=== PATIENT | female | born 1975 | race Caucasian/White ===

== ENCOUNTER 2018-02-10 14:13 | Emergency (ER) | payer BC, SELFPAY ==
[2018-02-10 14:14] VITALS: BP 148/91; PULSE 77; RESP 18; TEMP 37.8; O2SAT 99; BMI 28.3
--- NOTE | 2018-02-10 15:31 | CT_ITS ---
STUDY: CT ABDOMEN AND PELVIS WITHOUT CONTRAST REASON FOR EXAM: Female, 42 years old. Abdominal pain, nausea and bright red rectal bleeding. RADIATION DOSAGE (If Supplied By Facility): CTDIvol = ( 7.17 ) mGy, DLP = ( 333.29 ) mGycm TECHNIQUE: Transaxial images were obtained from the dome of the diaphragm to the symphysis pubis without oral contrast, and without intravenous contrast. Sagittal and coronal images were reconstructed. Individualized dose optimization techniques were used for this CT. COMPARISON: None. FINDINGS: The visualized lung bases are unremarkable. The visualized portions of the heart are within normal limits. Normal liver. Normal gallbladder and extrahepatic biliary system. Normal spleen. Normal pancreas. Normal bilateral adrenal glands. Focal cortical scar in the posterior lower pole of the right kidney. Otherwise normal right kidney without hydronephrosis, renal or ureteral stones. Normal left kidney without hydronephrosis, renal or ureteral stones. Normal visualized stomach. Normal small intestine. Minimal diverticulosis of the distal descending colon without evidence of acute diverticulitis. The distal rectosigmoid colon is thickened and featureless with no air in the lumen. There is stranding in the surrounding fatty tissues. Normal abdominal aorta. Normal inferior vena cava. Normal retroperitoneum. Normal urinary bladder. The uterus is anteverted and tilted to the right side. There is a slightly lumpy fundus, most likely fibroid changes. There is a 4.2 x 4.7 x 4.5 cm left ovarian cyst. 1.3 cm cyst or dominant follicle of the right ovary. Negative for free fluid. Normal abdominal wall. Normal osseous structures. CT/Abdomen/Pelvis without Cont IMPRESSION: Generalized thickening of an otherwise featureless distal rectosigmoid colon with stranding in the surrounding fatty tissues. Findings are consistent with a distal colitis/proctitis without evidence of focal perforation or abscess formation. As the lumen is completely airless, a mass density is not totally excludable but is not suggested. Probable fibroid change of the uterine fundus. 4.2 x 4.7 x 4.5 cm left ovarian cyst. 1.3 cm cyst or dominant follicle of the right ovary. Negative for free fluid. Minimal diverticulosis of primarily the descending colon without evidence of acute diverticulitis. A normal appendix is identified. Electronically Signed: Enriqueta Pulido MD at 17:30 EDT , Service support ,
--- NOTE | 2018-02-10 15:32 | ED.VISSUMM ---
- ER Visit Summary Date of Service: 02/10/18 Chief Complaint: [Abdominal pain, rectal bleeding] History of Present Illness: The patient is a 42 F [[place] with abdominal pain that started this morning. She has had a constant feeling like she has to go to the bathroom but when she goes it is just small amount of bright red blood that collects in the bottom of the toilet. She has had about 5 episodes like this. She feels very fatigued. She has had slowly worsening abdominal pain. She did do an enema early afternoon thinking she may be constipated and it made the pain much worse. She has had nausea and chills. No vomiting. The pain does radiate to the back and is in the bilateral lower quadrant. She has had an oophorectomy. She has obstructive sleep apnea and occasional heartburn. She does not use NSAIDs. She rarely drinks alcohol. She denies smoking.] Physical Examination: [] Temperature 100.1 WN WD NAD PERRL EOMI MMM NECK supple and nontender, no masses RRR no murmur rub or gallop, no peripheral edema, symmetric radial pulses CTAB no respiratory distress ABDOMEN is soft tenderness in the bilateral lower quadrants, normal bowel sounds, no distension, no rebound or guarding Mild tenderness to percussion of the lower back The exam reveals no hemorrhoids the rectal vault is empty there is no gross blood SKIN is warm and dry no rashes Alert and Oriented x3, CN II-XII in tact, no motor or sensory deficits, gait normal No lymphadenopathy Test Results: [] Emergency Department Course and Treatment: [V was established she was given fluids morphine and Zofran. She was improved. Patient had a mild leukocytosis at 11.9. BMP was unremarkable. CT showed inflammation with associated stranding around the distal colon sigmoid and rectum. She had fibroids in her uterus. Patient is tolerating p.o. is comfortable I think this likely could represent an infectious hemorrhagic colitis. She was given Cipro and Flagyl. She was given Citra Cipro Flagyl [place] and Zofran for home. She was given careful precautions for which to return and will follow up with primary care physician at the [facility]. I did explain to her that if she is not doing better and could not get close follow-up and she should return to the emergency department.] Treatment Plan: [] Disposition: [Discharge] Impression: [hemorrhagic colitis] This note was generated with [employer] dictation software. It may contain incorrect words, spelling, and punctuation that were not noted in review of the chart prior to signing ED Disposition - Plan for ED Patient: Chief Complaint: GI Bleed Referrals: Jose Dewitt DO [Primary Care Provider] -
--- NOTE | 2018-02-10 15:35 | ED.DCSUM_ITS ---
- ER Visit Summary Date of Service: 02/10/18 Chief Complaint: [Abdominal pain, rectal bleeding] History of Present Illness: The patient is a 42 F [[place] emergency department with abdominal pain that started this morning. She has had a constant feeling like she has to go to the bathroom but when she goes it is just small amount of bright red blood that collects in the bottom of the toilet. She has had about 5 episodes like this. She feels very fatigued. She has had slowly worsening abdominal pain. She did do an enema early afternoon thinking she may be constipated and it made the pain much worse. She has had nausea and chills. No vomiting. The pain does radiate to the back and is in the bilateral lower quadrant. She has had an oophorectomy. She has obstructive sleep apnea and occasional heartburn. She does not use NSAIDs. She rarely drinks alcohol. She denies smoking.] Physical Examination: [] Temperature 100.1 WN WD NAD PERRL EOMI MMM NECK supple and nontender, no masses RRR no murmur rub or gallop, no peripheral edema, symmetric radial pulses CTAB no respiratory distress ABDOMEN is soft tenderness in the bilateral lower quadrants, normal bowel sounds , no distension, no rebound or guarding Mild tenderness to percussion of the lower back The exam reveals no hemorrhoids the rectal vault is empty there is no gross blood SKIN is warm and dry no rashes Alert and Oriented x3, CN II-XII in tact, no motor or sensory deficits, gait normal No lymphadenopathy Test Results: [] Emergency Department Course and Treatment: [V was established she was given fluids morphine and Zofran. She was improved. Patient had a mild leukocytosis at 11.9. BMP was unremarkable. CT showed inflammation with associated stranding around the distal colon sigmoid and rectum. She had fibroids in her uterus. Patient is tolerating p.o. is comfortable I think this likely could represent an infectious hemorrhagic colitis. She was given Cipro and Flagyl. She was given Citra Cipro Flagyl [place] and Zofran for home. She was given careful precautions for which to return and will follow up with primary care physician at the [facility] [place]. I did explain to her that if she is not doing better and could not get close follow-up and she should return to the emergency department.] Treatment Plan: [] Disposition: [Discharge] Impression: [hemorrhagic colitis] This note was generated with [employer] dictation software. It may contain incorrect words, spelling, and punctuation that were not noted in review of the chart prior to signing ED Disposition - Plan for ED Patient: Chief Complaint: GI Bleed Referrals: Jose Dewitt DO [Primary Care Provider] -
[2018-02-10] MEDS: Morphine 4 MG/ML Syringe IV (16:15)
[2018-02-10] MEDS: Ondansetron 4 MG/2 ML Vial IV (16:15)
[2018-02-10] MEDS: 0.9% Normal Saline 1,000 ML 1000 ML IV (16:16)
[2018-02-10 16:18] LABS: Basophil# 0.02 X10^3/uL; Basophil% 0.2 % (0-1); Eosinophil# 0.06 X10^3/uL; Eosinophils% 0.5 % (0-5); Hematocrit 41.9 % (37-47); Hemoglobin 13.6 g/dl (12.0-15.0); Lymphocyte % 10.1 % (19-41); Mean Corp Hgb Conc 32.5 g/gl (32-36); Mean Corpuscular Volume 83.1 fL (81-99); Monocyte# 0.61 X10^3/uL; Monocyte% 5.1 % (0-10); Neutrophil # 10.02 X10^3/uL (2.7-7.7); Platelet Count 138 K/mm3 (150-450); RBC Distribution Width CV 13.2 % (11.6-14.6); RBC Distribution Width SD 39.5 fl (35.1-43.9); Red Blood Count 5.04 M/mm3 (4.2-5.4); White Blood Count 11.9 K/mm3 (4.4-11.0)
[2018-02-10 16:19] LABS: POSITIVE COUNT NO; POSITIVE DIFFERENTIAL NO; POSITIVE MORPHOLOGY NO
[2018-02-10 16:36] LABS: ALB/GLOB Ratio 1.1 RATIO (0.9-2.4); AST(SGOT) 11 U/L (15-37); Alanine Aminotransfer ALT/SGPT 21 U/L (13-56); Albumin, Serum 4.2 g/dL (3.2-5.0); Alkaline Phosphatase 54 U/L (45-117); Anion Gap 8 (5-15); BUN 8 mg/dL (7-18); BUN/Creat Ratio 10.3 RATIO (10-20); Calcium,Total 8.5 mg/dL (8.5-10.1); Chloride 104 mmol/L (98-107); Creatinine, Serum 0.78 mg/dL (0.55-1.02); EST Glomerular Filtration Rate 87 mL/min (>60); Est Glom Filt Rate - Afr Amer 105 mL/min (>60); Estimated Creatinine Clearance 79.31 ml/min; Globulin 3.8 g/dL (2.2-4.2); Glucose 89 mg/dL (74-106); Lipase 144 U/L (73-393); Potassium 3.8 mmol/L (3.5-5.1); Sodium Level 137 mmol/L (136-145)
[2018-02-10 16:42] LABS: Pregnancy, Serum, hCG Quali. NEGATIVE Negative (0-9 Nonpreg)
[2018-02-10 16:54] LABS: Bacteria 0 SEEN /hpf (None Seen); Mucous, Urine 0 SEEN /hpf (<or=2+); Red Blood Cells-Urine 0 SEEN /hpf (0-5); Squamous Epithelial Cells - UA 0 SEEN /hpf (5-10); White Blood Cells 0 SEEN /hpf (0-5)
[2018-02-10 17:00] VITALS: RESP 18
[2018-02-10 17:04] LABS: Color, Urine Yellow (Yellow); Glucose, Dipstick Normal (Normal); Ketone-Dipstick 50 mg/dl (Negative); Leukocyte Esterase-Dipstick Negative /ul (Negative); Nitrite-Dipstick Negative (Negative); Occult Blood-Urine Negative /ul (Negative); Protein-Dipstick Negative (Negative); Urine Bilirubin Dipstick Negative (Negative); Urine Clarity Clear (Clear); Urine Urobilinogen Normal (Normal)
--- NOTE | 2018-02-10 18:10 | ED.DEP ---
ED Disposition - Plan for ED Patient: Disposition: Home or Assisted Living Chief Complaint: GI Bleed Instructions: ED Gastroenteritis Bacterial Prescriptions: Hydrocodone Bitart/Apap 5-325 [[place] 5MG-325MG] 1 tablet PO Q6H PRN PRN 3 Days #10 tablet PRN Reason: Pain Ondansetron [Zofran Odt] 4 mg PO Q8H PRN PRN #14 tablet PRN Reason: Nausea Metronidazole [Flagyl] 500 mg PO Q8H #21 tablet Ciprofloxacin [Cipro] 500 mg PO BID #14 tablet Referrals: Paxton Conteh DO [NON CLINICAL AFFILIATE] - 3-5 Days
--- NOTE | 2018-02-10 18:15 | DCINST.ED_ITS ---
ED Disposition - Plan for ED Patient: Disposition: Home or Assisted Living Chief Complaint: GI Bleed Instructions: ED Gastroenteritis Bacterial Prescriptions: Hydrocodone Bitart/Apap 5-325 [[place] 5MG-325MG] 1 tablet PO Q6H PRN PRN 3 Days # 10 tablet PRN Reason: Pain Ondansetron [Zofran Odt] 4 mg PO Q8H PRN PRN #14 tablet PRN Reason: Nausea Metronidazole [Flagyl] 500 mg PO Q8H #21 tablet Ciprofloxacin [Cipro] 500 mg PO BID #14 tablet Referrals: Paxton Conteh DO [NON CLINICAL AFFILIATE] - 3-5 Days
[2018-02-10] MEDS: Ciprofloxacin 500 MG Tablet PO (18:26)
[2018-02-10] MEDS: metroNIDAZOLE 500 MG Tablet PO (18:26)
[2018-02-10 18:32] VITALS: BP 117/58; PULSE 71; RESP 17; O2SAT 98
== END 2018-02-10 18:33 | disposition home or self-care (01) ==
PROVIDERS: Emergency Provider Emergency Medicine; Family Provider Family Medicine; PCP Family Medicine
DX: K52.9 Noninfective gastroenteritis and colitis, unspecified (principal)
CPT/HCPCS: 74176; 80053; 81001; 82274; 83605; 83690; 84703; 85025; 96361; 96374; 96375; 99285; J7030; A4216; J2405

== ENCOUNTER 2018-02-14 02:15 | Emergency (ER) | payer BC, SELFPAY ==
[2018-02-14 02:17] VITALS: BP 160/81; PULSE 81; RESP 20; TEMP 36.7; O2SAT 99; BMI 29.4
--- NOTE | 2018-02-14 02:50 | RAD_ITS ---
STUDY: X-RAY - ABDOMEN/PELVIS REASON FOR EXAM: Female, 42 years old. Pain TECHNIQUE: Single AP view of the abdomen / pelvis. COMPARISON: None. FINDINGS: Constipation pattern is present. Nonobstructive bowel gas pattern. Pelvic phleboliths. There is no demonstrated free abdominal air. The visualized liver, spleen and kidneys are grossly normal in size and morphology. Normal soft tissue structures. Normal visualized osseous structures. RAD/Abdomen Single View IMPRESSION: Constipation pattern is present. Nonobstructive bowel gas pattern. Electronically Signed: Chilo Adame MD at 4:21 EDT Tel , Service support ,
--- NOTE | 2018-02-14 03:19 | ED.DCSUM_ITS ---
- ER Visit Summary Date of Service: 02/14/18 Chief Complaint: Abdominal pain and constipation History of Present Illness: The patient is a 42 F history of sleep apnea. Only prior abdominal surgery was for resection of one ovary. She states that she was seen in the ER about 3 days ago. He did a full workup including a CAT scan. Basically treated her for colitis with Flagyl and Cipro. She states that she has not a bowel movement now for 2 weeks. Denies diarrhea. She has had some rectal bleeding which they knew about on the last evaluation. That has not gotten any worse. She denies any fever. She denies any dysuria. Physical Examination: Well-appearing middle-age female. Vital signs stable afebrile. She does not look septic or toxic. She is no acute distress. H EENT exam unremarkable. Moist mucous membranes. Neck nontender no lymphadenopathy. Lungs clear to auscultation bilaterally. Heart regular rate and rhythm no murmur. Abdomen is soft, nontender nondistended normal bowel sounds no peritoneal signs. She has no localizing tenderness. There is no rebound, guarding or rigidity. Both the right upper right lower quadrant unremarkable. There is no hernias or masses. There is no signs of obstruction. She is moving all 4 extremities are neurovascular intact. Neurologically she is awake and alert without focal motor deficits. Test Results: I reviewed the patient's workup from several days ago in the ER. At that time her CBC, chemistry and other labs are basically unremarkable. She also had a CT done at that time. Emergency Department Course and Treatment: A KUB was done tonight showed increased stool in the descending colon some in the rectum. There is no signs of obstruction. There was increased bowel gas on the right. Treatment Plan: Patient will be treated with magnesium citrate. And instructed to follow-up for an outpatient colonoscopy for her rectal bleeding. Disposition: Discharge Impression: Abdominal pain secondary to constipation Rectal bleeding of uncertain etiology This note was generated with [employer] dictation software. It may contain incorrect words, spelling, and punctuation that were not noted in review of the chart prior to signing ED Disposition - Plan for ED Patient: Chief Complaint: Abd Pain Referrals: Care Physician,No Primary [Primary Care Provider] -
--- NOTE | 2018-02-14 03:19 | ED.DEP ---
ED Disposition - Plan for ED Patient: Disposition: Home or Assisted Living Chief Complaint: Abd Pain Instructions: ED Constipation Referrals: Jasmeet Akhtar MD [STAFF PHYSICIAN] - As soon as possible Additional Instructions: Drink the entire bottles of magnesium citrate to help have a bowel movement. Call follow-up with Dr. Jasmeet Akhtar or general surgeon of her choice as soon as possible for an outpatient colonoscopy. This will need to be done to evaluate you for your rectal bleeding. Do not have a source or cause for that at this time.
[2018-02-14] MEDS: Magnesium Citrate 300 ML PO (03:26)
[2018-02-14 03:27] VITALS: BP 148/71; PULSE 78; RESP 22; O2SAT 96
== END 2018-02-14 03:27 | disposition home or self-care (01) ==
PROVIDERS: Emergency Provider Emergency Medicine
DX: K59.00 Constipation, unspecified (principal); K62.5 Hemorrhage of anus and rectum
CPT/HCPCS: 74018; 99283; A4216

== ENCOUNTER → 2019-12-01 10:48 | Outpatient (CLI) | payer BC, SELFPAY ==
[2019-12-01 15:08] LABS: Absolute Lymphocyte Count 1.16 X10^3/uL (0.83-4.51); Absolute Neutrophil Count 3.9 X10^3/uL (2.0-7.7); Basophil# 0.04 X10^3/uL; Basophil% 0.7 % (0-1); Eosinophil# 0.11 X10^3/uL; Hematocrit 45.2 % (37-47); Hemoglobin 13.9 g/dL (12.0-15.0); Lymphocyte # 1.16 X10^3/ul (4.0); Mean Corp Hgb Conc 30.8 g/dL (32-36); Mean Corpuscular Hgb 27.1 pg (27.0-32.0); Mean Corpuscular Volume 88.1 fL (81-99); Mean Platelet Vol. 11.6 fl (6.2-12.0); Monocyte# 0.34 X10^3/uL; Monocyte% 6.1 % (0-10); NRBC Flagged by Analyzer 0 % (0-5); Neutrophil # 3.86 X10^3/uL (2.7-7.7); Neutrophil % 69.8 % (47-70); Platelet Count 199 K/mm3 (150-450); RBC Distribution Width CV 13.4 % (11.6-14.6); RBC Distribution Width SD 43.4 fl (35.1-43.9); Red Blood Count 5.13 M/mm3 (4.2-5.4); White Blood Count 5.5 K/mm3 (4.4-11.0)
[2019-12-01 15:21] LABS: Vitamin D,25 Hydroxy 93.2 ng/mL
[2019-12-01 15:23] LABS: Vitamin B12 > 2000 pg/mL (211-911)
[2019-12-01 15:25] LABS: ALB/GLOB Ratio 1.1 RATIO (0.9-2.4); AST(SGOT) 16 U/L (15-37); Alanine Aminotransfer ALT/SGPT 23 U/L (13-56); Albumin, Serum 4.5 g/dL (3.2-5.0); Alkaline Phosphatase 61 U/L (45-117); Anion Gap 11 (5-15); BUN 14 mg/dL (7-18); BUN/Creat Ratio 16.7 RATIO (10-20); Calcium,Total 9.5 mg/dL (8.5-10.1); Chloride 104 mmol/L (98-107); Cholesterol 275 mg/dL (200); Creatinine, Serum 0.84 mg/dL (0.55-1.02); EST Glomerular Filtration Rate 79 mL/min (>60); Est Glom Filt Rate - Afr Amer 95 mL/min (>60); Ferritin 41 ng/mL (8-252); Globulin 4.1 g/dL (2.2-4.2); Glucose 75 mg/dL (74-106); High Density Lipoprotein 41 mg/dL; Iron 61 ug/dL (50-170); Iron Binding Capacity,Total 369 ug/dL (250-450); Potassium 3.7 mmol/L (3.5-5.1); Protein, Total 8.6 g/dL (6.4-8.2); Sodium Level 139 mmol/L (136-145); T4 Free Direct 1.22 ng/dL (0.76-1.46); Thyroid Stim Hormone (TSH) 1.05 uIU/mL (0.358-3.74); Triglycerides 109 mg/dL; Very Low Density Lipoprotein 22 mg/dL (5-40)
[2019-12-05 16:05] LABS: Vitamin B1, Thiamine 84.7 nmol/L (66.5-200.0)
== END ==
PROVIDERS: PCP Family Medicine; Referring Provider Family Medicine; Visit Provider Family Medicine
DX: E55.9 Vitamin D deficiency, unspecified (principal); E61.1 Iron deficiency; E53.9 Vitamin B deficiency, unspecified; R53.83 Other fatigue; E78.5 Hyperlipidemia, unspecified
CPT/HCPCS: 36415; 80053; 80061; 82306; 82607; 82728; 83540; 83550; 84425; 84439; 84443; 85025